=== PATIENT | male | born 1955 | race Native Hawaiian/Other Pacific Islander ===

== ENCOUNTER 2016-06-29 13:00 | Outpatient (CLI) | payer BC ==
[~2016-06-29 13:00] MED LIST: TRIBENZOR PO
== END 2016-06-29 23:05 | disposition home or self-care (01) ==
LOC: RAD 13:00
DX: M25.561 Pain in right knee (principal)

== ENCOUNTER 2016-08-13 07:29 | Outpatient (CLI) | payer BC | END 2016-08-13 19:43 | disposition home or self-care (01) | LOC: MRI 07:29 | DX: M23.231 Derangement of other medial meniscus due to old tear or injury, right knee (principal) ==

== ENCOUNTER 2016-09-08 08:09 | Outpatient (CLI) | payer BC | END 2016-09-08 19:05 | disposition home or self-care (01) | LOC: NM 08:09 | DX: Z91.89 Other specified personal risk factors, not elsewhere classified (principal); Z01.810 Encounter for preprocedural cardiovascular examination | CPT/HCPCS: 93306; A9500; J2785 ==

== ENCOUNTER 2016-09-21 08:16 | Outpatient (CLI) | payer BC ==
[2016-09-21 08:32] LABS: PLATELET COUNT 325 K/uL (142-355)
[2016-09-21 08:47] LABS: POTASSIUM 3.9 mmol/L (3.6-5.2); SODIUM 137 mmol/L (136-145)
== END 2016-09-21 19:04 | disposition home or self-care (01) ==
LOC: LABW 08:16
PROVIDERS: Specialist
DX: R93.1 Abnormal findings on diagnostic imaging of heart and coronary circulation (principal)
CPT/HCPCS: 36415; 80053; 85027

== ENCOUNTER 2016-11-26 07:40 | Outpatient (CLI) | payer BC | END 2016-11-26 08:40 | disposition home or self-care (01) | LOC: LABW 07:40 | PROVIDERS: Nurse Practitioner Adult Health | DX: E78.2 Mixed hyperlipidemia (principal); Z79.899 Other long term (current) drug therapy; Z51.81 Encounter for therapeutic drug level monitoring | CPT/HCPCS: 36415; 80061; 80076 ==

== ENCOUNTER 2017-01-01 11:45 | Outpatient (CLI) | payer BC ==
[2017-01-01 12:03] LABS: PLATELET COUNT 313 K/uL (142-355)
[2017-01-01 12:10] LABS: POTASSIUM 4.3 mmol/L (3.6-5.2)
== END 2017-01-01 12:45 | disposition home or self-care (01) ==
LOC: LABW 11:45
PROVIDERS: Specialist
DX: Z01.810 Encounter for preprocedural cardiovascular examination (principal)
CPT/HCPCS: 36415; 80053; 85027

== ENCOUNTER 2017-05-11 07:47 | Outpatient (CLI) | payer BC | END 2017-05-11 19:30 | disposition home or self-care (01) | LOC: LABW 07:47 | PROVIDERS: Nurse Practitioner Adult Health | DX: I25.10 Atherosclerotic heart disease of native coronary artery without angina pectoris (principal); E78.2 Mixed hyperlipidemia; Z79.899 Other long term (current) drug therapy; Z51.81 Encounter for therapeutic drug level monitoring | CPT/HCPCS: 36415; 80061; 80076 ==

== ENCOUNTER 2017-10-22 07:05 | Outpatient (CLI) | payer BC | END 2017-10-22 19:08 | disposition home or self-care (01) | LOC: LABW 07:05 | PROVIDERS: Specialist | DX: I25.10 Atherosclerotic heart disease of native coronary artery without angina pectoris (principal); E78.2 Mixed hyperlipidemia; Z51.81 Encounter for therapeutic drug level monitoring; Z79.899 Other long term (current) drug therapy | CPT/HCPCS: 36415; 80061; 80076 ==

== ENCOUNTER 2018-10-17 07:44 | Outpatient (CLI) | payer OTHER, MEDICARE | END 2018-10-17 19:09 | disposition home or self-care (01) | LOC: LABW 07:44 | PROVIDERS: Nurse Practitioner Adult Health | DX: E78.2 Mixed hyperlipidemia (principal); Z79.899 Other long term (current) drug therapy | CPT/HCPCS: 36415; 80061; 80076 ==

== ENCOUNTER → 2019-05-26 07:38 | Outpatient (CLI) | payer OTHER, MEDICARE | END | disposition home or self-care (01) | LOC: LABW 07:38 | PROVIDERS: Nurse Practitioner Adult Health | DX: E78.2 Mixed hyperlipidemia (principal); Z79.899 Other long term (current) drug therapy | CPT/HCPCS: 36415; 80061; 80076 ==

== ENCOUNTER 2019-11-29 07:38 | Outpatient (CLI) | payer OTHER, MEDICARE | END 2019-11-29 20:21 | disposition home or self-care (01) | LOC: LABW 07:38 | PROVIDERS: Nurse Practitioner Adult Health | DX: I48.0 Paroxysmal atrial fibrillation (principal); Z79.899 Other long term (current) drug therapy | CPT/HCPCS: 36415; 80061; 80076 ==

== ENCOUNTER 2020-04-26 10:21 | Outpatient (CLI) | payer OTHER, MEDICARE | END 2020-04-26 20:04 | disposition home or self-care (01) | LOC: LAB 10:21 | PROVIDERS: ATTEND Internal Medicine | DX: U07.1 COVID-19 (principal); Z20.828 Contact with and (suspected) exposure to other viral communicable diseases | CPT/HCPCS: 87635; G2023; U0003 ==

== ENCOUNTER 2020-08-21 07:37 | Outpatient (CLI) | payer OTHER, MEDICARE | END 2020-08-21 19:58 | disposition home or self-care (01) | LOC: LABW 07:37 | PROVIDERS: ATTEND Nurse Practitioner Adult Health | DX: E78.2 Mixed hyperlipidemia (principal); Z79.899 Other long term (current) drug therapy | CPT/HCPCS: 36415; 80061; 80076 ==

== ENCOUNTER 2021-03-04 07:40 | Outpatient (CLI) | payer OTHER, MEDICARE | END 2021-03-04 20:52 | disposition home or self-care (01) | LOC: LABW 07:40 | PROVIDERS: ATTEND Nurse Practitioner Adult Health | DX: E78.49 Other hyperlipidemia (principal); Z79.899 Other long term (current) drug therapy | CPT/HCPCS: 36415; 80061; 80076 ==

== ENCOUNTER 2021-10-07 07:47 | Outpatient (CLI) | payer OTHER, MEDICARE | END 2021-10-07 19:26 | disposition home or self-care (01) | LOC: LABW 07:47 | PROVIDERS: ATTEND Nurse Practitioner Adult Health | DX: E78.49 Other hyperlipidemia (principal); I25.10 Atherosclerotic heart disease of native coronary artery without angina pectoris; Z79.899 Other long term (current) drug therapy | CPT/HCPCS: 36415; 80061; 80076 ==

== ENCOUNTER 2022-04-21 07:40 | Outpatient (CLI) | payer OTHER, MEDICARE | END 2022-04-21 19:34 | disposition home or self-care (01) | LOC: LABW 07:40 | PROVIDERS: ATTEND Nurse Practitioner Adult Health | DX: E78.2 Mixed hyperlipidemia (principal); I10 Essential (primary) hypertension | CPT/HCPCS: 36415; 80061; 80076 ==

== ENCOUNTER 2022-10-29 07:44 | Outpatient (CLI) | payer OTHER, MEDICARE | END 2022-10-29 19:42 | disposition home or self-care (01) | LOC: LABW 07:44 | PROVIDERS: ATTEND Nurse Practitioner Adult Health | DX: E78.2 Mixed hyperlipidemia (principal); I25.10 Atherosclerotic heart disease of native coronary artery without angina pectoris; Z79.899 Other long term (current) drug therapy | CPT/HCPCS: 36415; 80061; 80076 ==